=== PATIENT | male | born 1980 | race Caucasian/White ===

== ENCOUNTER 2016-11-14 15:10 | Emergency (ER) | payer SELFPAY ==
[2016-11-14 16:37] VITALS: BP 142/79
== END 2016-11-14 16:37 | disposition home or self-care (01) ==
LOC: ED 15:10
DX: S01.511A Laceration without foreign body of lip, initial encounter (principal); J45.909 Unspecified asthma, uncomplicated; Y04.0XXA Assault by unarmed brawl or fight, initial encounter; Y93.89 Activity, other specified; Y92.89 Other specified places as the place of occurrence of the external cause; Y99.8 Other external cause status
CPT/HCPCS: J2001

== ENCOUNTER 2016-11-23 16:58 | Emergency (ER) | payer SELFPAY ==
[~2016-11-23] VITALS: Ht 165.1 cm; Wt 0.9 kg
[2016-11-23 17:02] VITALS: BP 127/77
== END 2016-11-23 20:00 | disposition home or self-care (01) ==
LOC: ED 16:58
DX: S01.511A Laceration without foreign body of lip, initial encounter (principal); J45.909 Unspecified asthma, uncomplicated; X58.XXXA Exposure to other specified factors, initial encounter; Y93.89 Activity, other specified; Y99.8 Other external cause status; Y92.89 Other specified places as the place of occurrence of the external cause
CPT/HCPCS: J2001

== ENCOUNTER 2017-02-13 11:23 | Emergency (ER) | payer SELFPAY ==
[2017-02-13 12:59] VITALS: BP 109/73
== END 2017-02-13 12:59 | disposition home or self-care (01) ==
LOC: ED 11:23
DX: S02.2XXA Fracture of nasal bones, initial encounter for closed fracture (principal); S09.90XA Unspecified injury of head, initial encounter; W22.8XXA Striking against or struck by other objects, initial encounter; Y93.89 Activity, other specified; Y99.8 Other external cause status; Y92.89 Other specified places as the place of occurrence of the external cause

== ENCOUNTER 2017-04-12 20:29 | Emergency (ER) | payer SELFPAY ==
[~2017-04-12] VITALS: Ht 170.2 cm; Wt 81.6 kg
[2017-04-12 20:50] VITALS: BP 140/91
== END 2017-04-12 21:06 | disposition home or self-care (01) ==
LOC: ED 20:29
DX: F10.129 Alcohol abuse with intoxication, unspecified (principal); J45.909 Unspecified asthma, uncomplicated

== ENCOUNTER 2017-07-21 12:07 | Emergency (ER) | payer SELFPAY ==
[~2017-07-21] VITALS: Ht 170.2 cm; Wt 77.1 kg
[2017-07-21 12:15] VITALS: BP 132/89; Ht 170.2 cm; Wt 77.1 kg
== END 2017-07-21 14:44 | disposition home or self-care (01) ==
LOC: ED 12:07
DX: Z48.01 Encounter for change or removal of surgical wound dressing (principal); F17.210 Nicotine dependence, cigarettes, uncomplicated; J45.909 Unspecified asthma, uncomplicated; Z90.49 Acquired absence of other specified parts of digestive tract

== ENCOUNTER 2017-09-24 23:23 | Emergency (ER) | payer OTHER ==
[~2017-09-24] VITALS: Ht 170.2 cm; Wt 77.1 kg
[2017-09-24 23:28] VITALS: BP 123/90; Ht 170.2 cm; Wt 77.1 kg
== END 2017-09-24 23:52 | disposition other institution (70) ==
LOC: ED 23:23
DX: S50.312A Abrasion of left elbow, initial encounter (principal); S50.311A Abrasion of right elbow, initial encounter; S60.512A Abrasion of left hand, initial encounter; S60.511A Abrasion of right hand, initial encounter; S09.90XA Unspecified injury of head, initial encounter; J45.909 Unspecified asthma, uncomplicated; W22.8XXA Striking against or struck by other objects, initial encounter; Y93.89 Activity, other specified; Y92.89 Other specified places as the place of occurrence of the external cause; Y99.8 Other external cause status

== ENCOUNTER 2017-10-10 04:36 | Emergency (ER) | payer OTHER ==
[~2017-10-10] VITALS: Ht 170.2 cm; Wt 77.2 kg
[2017-10-10 04:43] VITALS: Ht 170.2 cm; Wt 77.2 kg
[2017-10-10 05:31] LABS: BASOPHIL % 0.7 % (0-2); CALCIUM 9.3 mg/dL (8.5-10.1); CARBON DIOXIDE 28.8 mmol/L (21-32); CHLORIDE SERUM 101 mmol/L (98-107); GFR1 > 60 mL/min; GLUCOSE SERUM 104 mg/dL (74-106); PLATELET COUNT 320 x10^3mcL (130-400); POTASSIUM SERUM 4.2 mmol/L (3.5-5.1); RED CELL DISTRIBUTION WIDTH 13.4 % (11.5-14.5); SODIUM SERUM 137 mmol/L (136-145)
[2017-10-10 06:12] VITALS: BP 131/84
== END 2017-10-10 06:12 | disposition home or self-care (01) ==
LOC: ED 04:36
PROVIDERS: Emergency Medicine
DX: R63.4 Abnormal weight loss (principal); R63.0 Anorexia
CPT/HCPCS: 36415